=== PATIENT | female | born 1970 | race Two or more races ===

== ENCOUNTER 2021-02-05 18:18 | Emergency (ER) | payer OTHER ==
[~2021-02-05] VITALS: Ht 167.6 cm; Wt 65.8 kg
[2021-02-05] MEDS ORDERED: DULCOLAX5 MG PO (19:09)
== END 2021-02-05 21:09 | disposition home or self-care (01) ==
LOC: ER 18:18
DX: T78.49XA Other allergy, initial encounter (principal); X58.XXXA Exposure to other specified factors, initial encounter

== ENCOUNTER 2023-08-09 09:23 | Emergency (ER) | payer OTHER ==
[~2023-08-09] VITALS: Ht 165.1 cm; Wt 58.5 kg
[~2023-08-09 09:23] MED LIST: DULCOLAX5 MG PO
[2023-08-09] MEDS ORDERED: TRINTELLIX10 MG PO (09:45)
[2023-08-09] MEDS ORDERED: BUSPIRONE HCL15 MG PO (09:45)
[2023-08-09] MEDS ORDERED: LAMICTAL25 MG PO (09:46)
[2023-08-09] MEDS ORDERED: PROPRANOLOL HCL10 MG PO (09:46)
[2023-08-09] MEDS ORDERED: SODIUM CHLORIDE 0.45 % 1,000 ML IV STA (10:28)
[2023-08-09] MEDS ORDERED: MEPERIDINE HCL/PF 50 MG/ML VIAL IM STA (10:29)
[2023-08-09 11:10] LABS: HEMATOCRIT 40.5 % (36.0-45.00); HEMOGLOBIN 13.5 g/dL (12.0-15.00); MEAN CELL VOLUME 93.1 fL (80.00-100.00); MEAN CORPUSCULAR HGB CONC 33.3 g/dl (32.0-36.0); PLATELET COUNT 273 K/uL (150-450); RED BLOOD COUNT 4.35 M/uL (4.00-6.00); RED CELL DISTRIBUTION WIDTH 14.8 % (11.5-14.5)
[2023-08-09 11:37] LABS: ALBUMIN 3.9 gm/dL (3.4-5.0); BILIRUBIN TOTAL 2.52 mg/dL (0.3-1.2); BILIRUBIN,CONJUGATED 0.39 mg/dL (0.0-0.2); BILIRUBIN,UNCONJUGATED 2.13 mg/dL (0.0-0.6); GFR 58.69; POTASSIUM 3.67 mEq/L (3.5-5.1); TOTAL PROTEIN 7.5 gm/dL (6.4-8.2)
[2023-08-09 12:49] LABS: PH,URINE 6.5 (5.0-8.0); URINE APPEARANCE Cloudy; URINE BILIRRUBIN Small (NEGATIVE); URINE BLOOD Moderate; URINE COLOR Dark Yellow; URINE GLUCOSE Negative (NEGATIVE); URINE LEUKOCYTE Trace; URINE NITRATE Negative; URINE PROTEIN 30 (NEGATIVE)
[2023-08-09 12:53] LABS: URINE BACTERIA 4598.7 uL (0.0-1933); URINE EPITHELIAL CELLS 128.7 uL (0.0-38.8); URINE RBC 169.8 uL (0.0-20.8); URINE WBC 15.1 uL (0.0-23.2)
== END 2023-08-09 13:25 | disposition home or self-care (01) ==
LOC: ER 09:24
PROVIDERS: General Practice
DX: N83.292 Other ovarian cyst, left side (principal); R10.9 Unspecified abdominal pain

== ENCOUNTER 2024-03-05 12:29 | Inpatient (IN) | payer OTHER ==
[~2024-03-05] VITALS: Ht 165.1 cm; Wt 56.7 kg
[~2024-03-05 12:29] MED LIST changes: +BUSPIRONE HCL15 MG PO; +LAMICTAL25 MG PO; +PROPRANOLOL HCL10 MG PO; +TRINTELLIX10 MG PO
[2024-03-05] MEDS ORDERED: 0.9 % SODIUM CHLORIDE 1,000 ML IV SCH ×2 (13:15→19:15)
[2024-03-05] MEDS ORDERED: MEPERIDINE HCL 25 MG/ML AMPUL IV ONE ×2 (13:15→14:45)
[2024-03-05] MEDS ORDERED: PROMETHAZINE HCL 25 MG/ML AMPUL ONE (13:18)
[2024-03-05 13:30] LABS: HEMOGLOBIN 12.1 g/dL (12.0-15.00); MEAN CELL VOLUME 90.3 fL (80.00-100.00); MEAN CORPUSCULAR HEMOGLOBIN 30.3 pg (27.00-32.0); MEAN CORPUSCULAR HGB CONC 33.6 g/dl (32.0-36.0); PLATELET COUNT 247 K/uL (150-450); RED BLOOD COUNT 3.99 M/uL (4.00-6.00); RED CELL DISTRIBUTION WIDTH 14.8 % (11.5-14.5)
[2024-03-05] MEDS ORDERED: PROMETHAZINE HCL 25 MG/ML AMPUL IM ONE (13:45)
[2024-03-05 13:52] LABS: INR 1.05; PARTIAL THROMBOPLASTIN TIME 23.7 SECONDS (22.0-34.0); PROTHROMBIN TIME 11.4 SECONDS (9.0-11.5)
[2024-03-05 13:56] LABS: ALBUMIN 3.9 gm/dL (3.4-5.0); BILIRUBIN TOTAL 0.98 mg/dL (0.3-1.2); CALCIUM 9.7 mg/dL (8.5-10.1); CREATININE SERUM 0.94 mg/dL (0.55-1.02); GFR 62.78; GLOBULINA 3.8 G/DL (2.4-3.5); POTASSIUM 3.53 mEq/L (3.5-5.1); TOTAL PROTEIN 7.7 gm/dL (6.4-8.2)
[2024-03-05] MEDS ORDERED: PIPERACILLIN/TAZOBACTAM SODIUM 3.375 GM in DEXTROSE 5 % IN WATER 100 ML IV SCH (19:10)
[2024-03-05] MEDS ORDERED: KETOROLAC TROMETHAMINE 15 MG VIAL IU ONE (19:15)
[2024-03-05] MEDS ORDERED: ACETAMINOPHEN 500 MG GEL..CAP PO PRN (19:15)
[2024-03-05] MEDS ORDERED: MEPERIDINE HCL/PF 25 MG/ML VIAL IM PRN (19:15)
[2024-03-05] MEDS ORDERED: ONDANSETRON HCL 4 MG in 0.9 % SODIUM CHLORIDE 50 ML IV PRN (19:15)
[2024-03-05] MEDS ORDERED: KETOROLAC TROMETHAMINE 30 MG VIAL ONE (19:38)
[2024-03-05] MEDS ORDERED: PIPERACILLIN/TAZOBACTAM SODIUM 3.375 GM VIAL IV ONE (19:39)
[2024-03-05] MEDS ORDERED: ONDANSETRON HCL 2 MG/ML VIAL ONE (19:39)
[2024-03-05] MEDS ORDERED: DIATRIZOATE MEGLUMINE, SODIUM 30 ML BOTTLE PO ONE (20:00)
[2024-03-05 20:23] LABS: INR 1.06; PARTIAL THROMBOPLASTIN TIME 25.9 SECONDS (22.0-34.0); PROTHROMBIN TIME 11.5 SECONDS (9.0-11.5)
[2024-03-05 23:00] VITALS: BP 95/56; O2SAT 99
[2024-03-06 08:44] VITALS: BP 90/54; O2SAT 99
[2024-03-06] MEDS ORDERED: FAMOTIDINE/PF 20 MG in 0.9 % SODIUM CHLORIDE 8 ML IV PUSH SCH (09:00)
[2024-03-06] MEDS ORDERED: MAGNESIUM SULFATE IN WATER 50 ML IV NR (10:00)
[2024-03-06 16:00] VITALS: BP 92/57; O2SAT 100
[2024-03-07 01:39] VITALS: BP 101/66; O2SAT 99
[2024-03-07 09:10] VITALS: BP 100/62; O2SAT 98
== END 2024-03-07 16:56 | disposition home or self-care (01) | DRG 390 ==
LOC: ER 12:29 → MEDI 19:42
PROVIDERS: Emergency Medicine; General Practice; ADMIT Internal Medicine; ATTEND Internal Medicine
PROC: BW21ZZZ Computerized Tomography (CT Scan) of Abdomen and Pelvis (ICD-10-PCS; principal; 2024-03-05)
PROC: BU4CZZZ Ultrasonography of Uterus and Ovaries (ICD-10-PCS; 2024-03-05)
DX: K56.51 Intestinal adhesions [bands], with partial obstruction (principal); N83.202 Unspecified ovarian cyst, left side